=== PATIENT | female | born 1945 | race Caucasian/White ===

== ENCOUNTER 2021-05-11 18:09 | Inpatient (IN) ==
[2021-05-12] MEDS ORDERED: Ondansetron 4 MG/2 ML VIAL IVP PRN (00:29)
[2021-05-12] MEDS ORDERED: Naloxone 0.4 MG/ML INJ IVP PRN (00:29)
[2021-05-12 02:14] LABS: Basophils % 0.1 %; Hematocrit 29.7 % (35.3-44.9); Hemoglobin 9.3 g/dL (11.5-15.4); Lymphocytes # 0.5 K/mcL (0.6-4.6); Lymphocytes % 4.3 %; Mean Corpuscular HGB Conc 31.3 g/dL (31.6-35.5); Mean Corpuscular Hemoglobin 25.3 pg (28.0-33.3); Mean Corpuscular Volume 80.9 fL (83.0-100.0); Mean Platelet Volume 9.7 fL (9.4-12.4); Monocytes # 0.2 K/mcL (0.0-1.3); Monocytes % 1.6 %; Neutrophils # 10.9 K/mcL (1.6-8.9); Platelet Count 375 K/mcL (140-400); Red Blood Count 3.67 M/mcL (3.82-4.97); Red Cell Distribution Width 14.6 % (11.5-14.5); White Blood Count 11.7 K/mcL (4.3-11.1)
[2021-05-12 02:31] LABS: Alanine Aminotransferase 56 Units/L (7-52); Albumin 3.1 g/dL (3.5-5.7); Alkaline Phosphatase 131 Units/L (34-104); Aspartate Amino Transferase 89 Units/L (13-39); BUN/Creatinine Ratio 24 (6-26); Bilirubin,Total 0.5 mg/dL (0.3-1.0); Blood Urea Nitrogen 19 mg/dL (8-23); Calcium 8.2 mg/dL (8.6-10.3); Carbon Dioxide 27 mEq/L (23-29); Chloride 103 mEq/L (98-107); Globulin 3.1 g/dL (2.4-3.5); Glucose 132 mg/dL (70-105); Magnesium 2.1 mg/dL (1.6-2.6); Osmolality,Calculated 292 (280-300); Phosphorous 3.7 mg/dL (2.7-4.5); Potassium 4.2 mEq/L (3.5-5.1); Sodium 139 mEq/L (136-145); Total Protein 6.2 g/dL (6.4-8.9); eGFR For African Americans > 60 (> 60); eGFR For Non-African Americans > 60 (> 60)
[2021-05-12 02:32] LABS: Troponin I < 0.03 ng/mL (< 0.04)
[2021-05-12] MEDS: Ipratropium 1 PUFF INHALER IH SCH ×5 (07:34→23:55)
[2021-05-12] MEDS: *HR* Heparin 5,000 UNIT/ML VIAL SQ SCH ×2 (08:02→20:16)
[2021-05-13] MEDS ORDERED: *HR* Labetalol 20 MG/4 ML SYRINGE IVP ONE (02:56)
[2021-05-13] MEDS: Ipratropium 1 PUFF INHALER IH SCH ×6 (04:01→23:38)
[2021-05-13] MEDS: *HR* Heparin 5,000 UNIT/ML VIAL SQ SCH (05:32)
[2021-05-13] MEDS: Acetaminophen 325 MG TABLET PO PRN (05:36)
[2021-05-13] MEDS ORDERED: Fluticasone Propionate Nasal 50 MCG/SPRAY BOTTLE NS PRN (07:27)
[2021-05-13] MEDS ORDERED: Hyoscyamine SL 0.125 MG TAB.SUBL PO PRN (07:27)
[2021-05-13] MEDS ORDERED: hydroCHLOROthiazide 25 MG TABLET PO PRN (07:27)
[2021-05-13] MEDS ORDERED: *HR* LORazepam 2 MG/ML VIAL IVP ONE (07:41)
[2021-05-13] MEDS: Dexamethasone Sodium Phos/PF 10 MG/ML VIAL IVP SCH (08:02)
[2021-05-13] MEDS: Ascorbic Acid 500 MG TABLET PO SCH (08:03)
[2021-05-13 08:18] LABS: Basophils % 0.1 %; Hematocrit 29.4 % (35.3-44.9); Hemoglobin 9.3 g/dL (11.5-15.4); Immature Granulocytes % 1.6 % (0-4); Immature Platelets 2.7 % (1.1-6.1); Lymphocytes # 0.6 K/mcL (0.6-4.6); Lymphocytes % 5.7 %; Mean Corpuscular HGB Conc 31.6 g/dL (31.6-35.5); Mean Corpuscular Hemoglobin 25.8 pg (28.0-33.3); Mean Corpuscular Volume 81.7 fL (83.0-100.0); Mean Platelet Volume 9.5 fL (9.4-12.4); Monocytes # 0.5 K/mcL (0.0-1.3); Monocytes % 4.9 %; Nucleated Red Blood Cells 0.2 /100 WBC (0); Platelet Count 438 K/mcL (140-400); Red Cell Distribution Width 14.7 % (11.5-14.5); Segmented Neutrophils % 87.7 %; White Blood Count 11.1 K/mcL (4.3-11.1)
[2021-05-13 08:20] LABS: Neutrophils # 9.7 K/mcL (1.6-8.9); Platelet Estimate Normal (Normal); Reactive Lymphocytes Present (Not Present)
[2021-05-13 08:29] LABS: Alanine Aminotransferase 41 Units/L (7-52); Albumin/Globulin Ratio 0.9 (1.1-2.2); Alkaline Phosphatase 126 Units/L (34-104); Aspartate Amino Transferase 53 Units/L (13-39); BUN/Creatinine Ratio 33 (6-26); Bilirubin,Total 0.5 mg/dL (0.3-1.0); Blood Urea Nitrogen 25 mg/dL (8-23); Calcium 8.4 mg/dL (8.6-10.3); Carbon Dioxide 26 mEq/L (23-29); Chloride 103 mEq/L (98-107); Globulin 3.3 g/dL (2.4-3.5); Glucose 135 mg/dL (70-105); Osmolality,Calculated 294 (280-300); Potassium 4.2 mEq/L (3.5-5.1); Sodium 139 mEq/L (136-145); Total Protein 6.3 g/dL (6.4-8.9); eGFR For African Americans > 60 (> 60); eGFR For Non-African Americans > 60 (> 60)
[2021-05-13 09:04] LABS: C-Reactive Protein 163 mg/L (Less than 10)
[2021-05-13] MEDS: *HR* Enoxaparin 80 MG/0.8 ML SYRINGE SQ SCH ×2 (11:06→18:03)
[2021-05-13] MEDS ORDERED: TOCILIZUMAB 648 MG in 0.9 % Sodium Chloride 96.4 ML IVPB ONE (12:30)
[2021-05-13] MEDS: Chloraseptic Spray 177 ML BOTTLE MM PRN (13:01)
[2021-05-13 15:16] LABS: Influenza A PCR Negative (Negative); Influenza B PCR Negative (Negative); Resp. Syncytial Virus PCR Negative (Negative)
[2021-05-13 15:24] LABS: SARS-CoV-2 by PCR (In House) Positive (Negative)
[2021-05-13] MEDS: Melatonin 3 MG TABLET PO PRN (19:36)
[2021-05-13] MEDS: Benzonatate 100 MG CAPSULE PO PRN (19:36)
[2021-05-14] MEDS: Ipratropium 1 PUFF INHALER IH SCH ×5 (03:43→20:29)
[2021-05-14] MEDS: Benzonatate 100 MG CAPSULE PO PRN (04:10)
[2021-05-14] MEDS ORDERED: Saline Nasal Spray 44 ML BOTTLE NS PRN (06:15)
[2021-05-14] MEDS: *HR* Enoxaparin 80 MG/0.8 ML SYRINGE SQ SCH ×2 (06:18→17:37)
[2021-05-14 06:56] LABS: Basophils % 0.2 %; Hematocrit 30.4 % (35.3-44.9); Hemoglobin 9.5 g/dL (11.5-15.4); Immature Granulocytes % 2.2 % (0-4); Lymphocytes # 1.2 K/mcL (0.6-4.6); Lymphocytes % 8.4 %; Mean Corpuscular HGB Conc 31.3 g/dL (31.6-35.5); Mean Corpuscular Hemoglobin 25.5 pg (28.0-33.3); Mean Corpuscular Volume 81.5 fL (83.0-100.0); Mean Platelet Volume 9.8 fL (9.4-12.4); Monocytes # 0.6 K/mcL (0.0-1.3); Monocytes % 4.5 %; Neutrophils # 11.7 K/mcL (1.6-8.9); Nucleated Red Blood Cells 0.2 /100 WBC (0); Platelet Count 497 K/mcL (140-400); Red Blood Count 3.73 M/mcL (3.82-4.97); Red Cell Distribution Width 14.8 % (11.5-14.5); Segmented Neutrophils % 84.7 %; White Blood Count 13.8 K/mcL (4.3-11.1)
[2021-05-14 07:16] LABS: Alanine Aminotransferase 37 Units/L (7-52); Albumin/Globulin Ratio 0.9 (1.1-2.2); Alkaline Phosphatase 135 Units/L (34-104); Aspartate Amino Transferase 49 Units/L (13-39); BUN/Creatinine Ratio 30 (6-26); Bilirubin,Total 0.6 mg/dL (0.3-1.0); Blood Urea Nitrogen 23 mg/dL (8-23); Calcium 8.4 mg/dL (8.6-10.3); Carbon Dioxide 26 mEq/L (23-29); Chloride 104 mEq/L (98-107); Globulin 3.4 g/dL (2.4-3.5); Glucose 136 mg/dL (70-105); Osmolality,Calculated 292 (280-300); Potassium 4.5 mEq/L (3.5-5.1); Sodium 138 mEq/L (136-145); Total Protein 6.4 g/dL (6.4-8.9); eGFR For African Americans > 60 (> 60); eGFR For Non-African Americans > 60 (> 60)
[2021-05-14 07:19] LABS: Reactive Lymphocytes Present (Not Present)
[2021-05-14 07:22] LABS: Lactate Dehydrogenase 603 Units/L (140-271)
[2021-05-14 07:33] LABS: Ferritin 171 ng/mL (10-120)
[2021-05-14 08:28] LABS: C-Reactive Protein 96 mg/L (Less than 10)
[2021-05-14] MEDS: Cholecalciferol (D-3) 1,000 UNIT (25MCG) TABLET PO SCH (09:16)
[2021-05-14] MEDS: Ascorbic Acid 500 MG TABLET PO SCH (09:16)
[2021-05-14] MEDS: Dexamethasone Sodium Phos/PF 10 MG/ML VIAL IVP SCH (09:16)
[2021-05-14] MEDS: Chloraseptic Spray 177 ML BOTTLE MM PRN (09:23)
[2021-05-14] MEDS ORDERED: Isovue-370 500 ML BOTTLE IVP ONE (11:56)
[2021-05-15] MEDS: Ipratropium 1 PUFF INHALER IH SCH ×7 (00:36→23:12)
[2021-05-15 04:54] LABS: Basophils % 0.2 %; Hematocrit 31.1 % (35.3-44.9); Hemoglobin 9.8 g/dL (11.5-15.4); Immature Granulocytes % 2.8 % (0-4); Lymphocytes # 1.1 K/mcL (0.6-4.6); Lymphocytes % 8.2 %; Mean Corpuscular HGB Conc 31.5 g/dL (31.6-35.5); Mean Corpuscular Hemoglobin 25.8 pg (28.0-33.3); Mean Corpuscular Volume 81.8 fL (83.0-100.0); Mean Platelet Volume 9.9 fL (9.4-12.4); Monocytes # 0.9 K/mcL (0.0-1.3); Monocytes % 6.4 %; Nucleated Red Blood Cells 0.2 /100 WBC (0); Platelet Count 550 K/mcL (140-400); Red Cell Distribution Width 14.8 % (11.5-14.5); Segmented Neutrophils % 82.4 %; White Blood Count 13.4 K/mcL (4.3-11.1)
[2021-05-15 04:59] LABS: Platelet Estimate Increased (Normal); Reactive Lymphocytes Present (Not Present)
[2021-05-15] MEDS: *HR* Enoxaparin 80 MG/0.8 ML SYRINGE SQ SCH ×2 (05:00→18:13)
[2021-05-15 05:11] LABS: Fibrinogen 258 mg/dL (169-393)
[2021-05-15 05:12] LABS: Alanine Aminotransferase 37 Units/L (7-52); Albumin 2.9 g/dL (3.5-5.7); Albumin/Globulin Ratio 0.9 (1.1-2.2); Alkaline Phosphatase 120 Units/L (34-104); Aspartate Amino Transferase 43 Units/L (13-39); BUN/Creatinine Ratio 35 (6-26); Bilirubin,Total 0.6 mg/dL (0.3-1.0); Blood Urea Nitrogen 25 mg/dL (8-23); C-Reactive Protein 51 mg/L (Less than 10); Calcium 8.3 mg/dL (8.6-10.3); Carbon Dioxide 23 mEq/L (23-29); Chloride 104 mEq/L (98-107); Globulin 3.4 g/dL (2.4-3.5); Glucose 134 mg/dL (70-105); Lactate Dehydrogenase 499 Units/L (140-271); Osmolality,Calculated 288 (280-300); Potassium 4.5 mEq/L (3.5-5.1); Sodium 136 mEq/L (136-145); Total Protein 6.3 g/dL (6.4-8.9); eGFR For African Americans > 60 (> 60); eGFR For Non-African Americans > 60 (> 60)
[2021-05-15 05:27] LABS: Ferritin 145 ng/mL (10-120)
[2021-05-15 05:29] LABS: D-Dimer 16933 ng/mLFEU (0-500)
[2021-05-15] MEDS ORDERED: Furosemide 20 MG/2 ML VIAL IVP ONE (07:29)
[2021-05-15] MEDS: Cholecalciferol (D-3) 1,000 UNIT (25MCG) TABLET PO SCH (09:43)
[2021-05-15] MEDS: Dexamethasone Sodium Phos/PF 10 MG/ML VIAL IVP SCH (09:44)
[2021-05-15] MEDS: Ascorbic Acid 500 MG TABLET PO SCH (09:44)
[2021-05-16] MEDS: Melatonin 3 MG TABLET PO PRN (03:09)
[2021-05-16] MEDS: Ipratropium 1 PUFF INHALER IH SCH ×6 (04:56→23:58)
[2021-05-16] MEDS: *HR* Enoxaparin 80 MG/0.8 ML SYRINGE SQ SCH ×2 (06:10→17:39)
[2021-05-16 08:05] LABS: Basophils % 0.3 %; Hematocrit 32.4 % (35.3-44.9); Hemoglobin 9.8 g/dL (11.5-15.4); Lymphocytes # 0.9 K/mcL (0.6-4.6); Mean Corpuscular HGB Conc 30.2 g/dL (31.6-35.5); Mean Corpuscular Hemoglobin 25.1 pg (28.0-33.3); Mean Corpuscular Volume 83.1 fL (83.0-100.0); Mean Platelet Volume 10.1 fL (9.4-12.4); Monocytes # 0.9 K/mcL (0.0-1.3); Monocytes % 7.8 %; Neutrophils # 9.3 K/mcL (1.6-8.9); Platelet Count 555 K/mcL (140-400); Red Cell Distribution Width 14.7 % (11.5-14.5); Segmented Neutrophils % 79.9 %; White Blood Count 11.7 K/mcL (4.3-11.1)
[2021-05-16 08:22] LABS: Alanine Aminotransferase 39 Units/L (7-52); Albumin 2.8 g/dL (3.5-5.7); Albumin/Globulin Ratio 0.9 (1.1-2.2); Alkaline Phosphatase 107 Units/L (34-104); Aspartate Amino Transferase 45 Units/L (13-39); BUN/Creatinine Ratio 38 (6-26); Bilirubin,Total 0.6 mg/dL (0.3-1.0); Blood Urea Nitrogen 30 mg/dL (8-23); Calcium 8.5 mg/dL (8.6-10.3); Carbon Dioxide 24 mEq/L (23-29); Chloride 104 mEq/L (98-107); Glucose 121 mg/dL (70-105); Osmolality,Calculated 289 (280-300); Potassium 4.6 mEq/L (3.5-5.1); Sodium 136 mEq/L (136-145); Total Protein 5.8 g/dL (6.4-8.9); eGFR For African Americans > 60 (> 60); eGFR For Non-African Americans > 60 (> 60)
[2021-05-16] MEDS: Dexamethasone Sodium Phos/PF 10 MG/ML VIAL IVP SCH (09:05)
[2021-05-16] MEDS: Cholecalciferol (D-3) 1,000 UNIT (25MCG) TABLET PO SCH (09:06)
[2021-05-16] MEDS: Ascorbic Acid 500 MG TABLET PO SCH (09:06)
[2021-05-16] MEDS: Furosemide 20 MG/2 ML VIAL IVP SCH (09:06)
[2021-05-16] MEDS: *HR* LORazepam 2 MG/ML VIAL IVP PRN ×2 (11:45→22:49)
[2021-05-17] MEDS: Ipratropium 1 PUFF INHALER IH SCH ×6 (04:06→23:28)
[2021-05-17 05:04] LABS: Basophils % 0.3 %; Hematocrit 34.7 % (35.3-44.9); Hemoglobin 10.6 g/dL (11.5-15.4); Immature Granulocytes % 2.8 % (0-4); Lymphocytes % 7.1 %; Mean Corpuscular HGB Conc 30.5 g/dL (31.6-35.5); Mean Corpuscular Volume 81.8 fL (83.0-100.0); Monocytes # 0.8 K/mcL (0.0-1.3); Neutrophils # 11.7 K/mcL (1.6-8.9); Platelet Count 632 K/mcL (140-400); Red Blood Count 4.24 M/mcL (3.82-4.97); Red Cell Distribution Width 14.8 % (11.5-14.5); Segmented Neutrophils % 83.8 %; White Blood Count 13.9 K/mcL (4.3-11.1)
[2021-05-17 05:13] LABS: Fibrinogen 186 mg/dL (169-393)
[2021-05-17 05:15] LABS: D-Dimer 7549 ng/mLFEU (0-500)
[2021-05-17 05:22] LABS: Alanine Aminotransferase 43 Units/L (7-52); Albumin 3.1 g/dL (3.5-5.7); Alkaline Phosphatase 97 Units/L (34-104); Aspartate Amino Transferase 32 Units/L (13-39); BUN/Creatinine Ratio 53 (6-26); Bilirubin,Total 0.6 mg/dL (0.3-1.0); Blood Urea Nitrogen 40 mg/dL (8-23); C-Reactive Protein 19 mg/L (Less than 10); Calcium 8.4 mg/dL (8.6-10.3); Carbon Dioxide 25 mEq/L (23-29); Chloride 102 mEq/L (98-107); Globulin 3.1 g/dL (2.4-3.5); Glucose 122 mg/dL (70-105); Lactate Dehydrogenase 467 Units/L (140-271); Osmolality,Calculated 293 (280-300); Potassium 4.4 mEq/L (3.5-5.1); Sodium 136 mEq/L (136-145); Total Protein 6.2 g/dL (6.4-8.9); eGFR For African Americans > 60 (> 60); eGFR For Non-African Americans > 60 (> 60)
[2021-05-17 05:37] LABS: Ferritin 138 ng/mL (10-120)
[2021-05-17] MEDS: *HR* Enoxaparin 80 MG/0.8 ML SYRINGE SQ SCH ×2 (05:53→18:21)
[2021-05-17] MEDS: Furosemide 20 MG/2 ML VIAL IVP SCH (08:42)
[2021-05-17] MEDS: Dexamethasone Sodium Phos/PF 10 MG/ML VIAL IVP SCH (08:43)
[2021-05-17] MEDS: Cholecalciferol (D-3) 1,000 UNIT (25MCG) TABLET PO SCH (08:43)
[2021-05-17] MEDS: Ascorbic Acid 500 MG TABLET PO SCH (08:43)
[2021-05-17] MEDS: *HR* LORazepam 2 MG/ML VIAL IVP PRN (14:56)
[2021-05-17] MEDS ORDERED: *HR* LORazepam 0.5 MG TABLET PO PRN (17:29)
[2021-05-17] MEDS: Melatonin 3 MG TABLET PO PRN (23:20)
[2021-05-18 03:40] LABS: Basophils % 0.2 %; Hematocrit 32.8 % (35.3-44.9); Immature Granulocytes % 2.4 % (0-4); Lymphocytes # 0.7 K/mcL (0.6-4.6); Lymphocytes % 6.1 %; Mean Corpuscular HGB Conc 30.5 g/dL (31.6-35.5); Mean Corpuscular Hemoglobin 24.7 pg (28.0-33.3); Monocytes # 0.4 K/mcL (0.0-1.3); Monocytes % 3.4 %; Neutrophils # 10.3 K/mcL (1.6-8.9); Platelet Count 557 K/mcL (140-400); Red Blood Count 4.05 M/mcL (3.82-4.97); Red Cell Distribution Width 14.7 % (11.5-14.5); Segmented Neutrophils % 87.9 %; White Blood Count 11.8 K/mcL (4.3-11.1)
[2021-05-18 03:53] LABS: Alanine Aminotransferase 38 Units/L (7-52); Albumin 2.8 g/dL (3.5-5.7); Alkaline Phosphatase 91 Units/L (34-104); Aspartate Amino Transferase 29 Units/L (13-39); BUN/Creatinine Ratio 44 (6-26); Bilirubin,Total 0.6 mg/dL (0.3-1.0); Blood Urea Nitrogen 30 mg/dL (8-23); Carbon Dioxide 23 mEq/L (23-29); Chloride 102 mEq/L (98-107); Globulin 2.7 g/dL (2.4-3.5); Glucose 110 mg/dL (70-105); Osmolality,Calculated 283 (280-300); Potassium 4.3 mEq/L (3.5-5.1); Sodium 133 mEq/L (136-145); Total Protein 5.5 g/dL (6.4-8.9); eGFR For African Americans > 60 (> 60); eGFR For Non-African Americans > 60 (> 60)
[2021-05-18] MEDS: Ipratropium 1 PUFF INHALER IH SCH ×3 (03:59→12:24)
[2021-05-18] MEDS: *HR* Enoxaparin 80 MG/0.8 ML SYRINGE SQ SCH ×2 (05:56→18:28)
[2021-05-18] MEDS: Cholecalciferol (D-3) 1,000 UNIT (25MCG) TABLET PO SCH (08:17)
[2021-05-18] MEDS: Ascorbic Acid 500 MG TABLET PO SCH (08:18)
[2021-05-18] MEDS: Furosemide 20 MG/2 ML VIAL IVP SCH (08:18)
[2021-05-18] MEDS: Dexamethasone Sodium Phos/PF 10 MG/ML VIAL IVP SCH (08:19)
[2021-05-18] MEDS ORDERED: Ipratropium 1 PUFF INHALER IH PRN (12:26)
[2021-05-18] MEDS: Melatonin 3 MG TABLET PO PRN (21:13)
[2021-05-19] MEDS: Acetaminophen 325 MG TABLET PO PRN (00:39)
[2021-05-19 05:28] LABS: Basophils % 0.1 %; Eosinophils # 0.1 K/mcL (0.0-0.6); Eosinophils % 0.6 %; Hematocrit 33.4 % (35.3-44.9); Hemoglobin 10.4 g/dL (11.5-15.4); Immature Granulocytes % 1.3 % (0-4); Lymphocytes # 0.8 K/mcL (0.6-4.6); Lymphocytes % 6.6 %; Mean Corpuscular HGB Conc 31.1 g/dL (31.6-35.5); Mean Corpuscular Hemoglobin 25.3 pg (28.0-33.3); Mean Corpuscular Volume 81.3 fL (83.0-100.0); Mean Platelet Volume 10.1 fL (9.4-12.4); Monocytes # 0.4 K/mcL (0.0-1.3); Monocytes % 3.5 %; Neutrophils # 11.2 K/mcL (1.6-8.9); Platelet Count 514 K/mcL (140-400); Red Blood Count 4.11 M/mcL (3.82-4.97); Segmented Neutrophils % 87.9 %; White Blood Count 12.8 K/mcL (4.3-11.1)
[2021-05-19 05:31] LABS: Fibrinogen 171 mg/dL (169-393)
[2021-05-19 05:34] LABS: D-Dimer 7981 ng/mLFEU (0-500)
[2021-05-19 06:02] LABS: Alanine Aminotransferase 35 Units/L (7-52); Albumin 2.8 g/dL (3.5-5.7); Albumin/Globulin Ratio 1.1 (1.1-2.2); Alkaline Phosphatase 93 Units/L (34-104); Aspartate Amino Transferase 31 Units/L (13-39); BUN/Creatinine Ratio 40 (6-26); Bilirubin,Total 0.6 mg/dL (0.3-1.0); Blood Urea Nitrogen 29 mg/dL (8-23); Calcium 8.2 mg/dL (8.6-10.3); Carbon Dioxide 24 mEq/L (23-29); Chloride 105 mEq/L (98-107); Globulin 2.6 g/dL (2.4-3.5); Glucose 89 mg/dL (70-105); Lactate Dehydrogenase 489 Units/L (140-271); Osmolality,Calculated 289 (280-300); Potassium 3.9 mEq/L (3.5-5.1); Sodium 137 mEq/L (136-145); Total Protein 5.4 g/dL (6.4-8.9); eGFR For African Americans > 60 (> 60); eGFR For Non-African Americans > 60 (> 60)
[2021-05-19 06:18] LABS: Ferritin 155 ng/mL (10-120)
[2021-05-19] MEDS: *HR* Enoxaparin 80 MG/0.8 ML SYRINGE SQ SCH (06:33)
[2021-05-19] MEDS: Dexamethasone Sodium Phos/PF 10 MG/ML VIAL IVP SCH (07:50)
[2021-05-19] MEDS: Cholecalciferol (D-3) 1,000 UNIT (25MCG) TABLET PO SCH (07:51)
[2021-05-19] MEDS: Ascorbic Acid 500 MG TABLET PO SCH (07:51)
[2021-05-19] MEDS: Furosemide 20 MG/2 ML VIAL IVP SCH (07:51)
[2021-05-19 12:21] VITALS: BP 123/81; PULSE 64; TEMP 98.9; O2SAT 91
[2021-05-19 13:29] LABS: C-Reactive Protein 7 mg/L (Less than 10)
== END 2021-05-19 03:15 | disposition hospice, home (50) | DRG 177 ==
LOC: 2NNU → SUATTDRO 22:46
PROVIDERS: ADMIT Hospitalist; ATTEND Family Medicine